=== PATIENT | female | born 1965 | race Caucasian/White ===

== ENCOUNTER 2016-08-26 10:09 | Inpatient (IN) | payer OTHER ==
[~2016-08-26] VITALS: Ht 167.6 cm; Wt 83.1 kg
--- NOTE | 2016-08-26 10:58 | DIAGNOSTIC IMAGING REPORT ---
PROCEDURE: XR CHEST 1 VIEW INDICATION: SHORTNESS OF BREATH TECHNIQUE: Portable AP view 10:45 a.m. COMPARISON: None. FINDINGS: Lungs are clear. Heart and mediastinum are normal. Thorax is normal. IMPRESSION: 1. Negative chest.
--- NOTE | 2016-08-26 13:27 | DIAGNOSTIC IMAGING REPORT ---
PROCEDURE: CTA THORAX WITH CONTRAST INDICATION: SHORTNESS OF BREATH, initial encounter TECHNIQUE: 80 ml of Isovue 370 was injected intravenously and axial images were obtained of the entire thorax with 3D sagittal and coronal MIP reconstructions. COMPARISON: Chest x-ray 08/26/2016 FINDINGS: Mild respiratory artifacts. No evidence of pulmonary emboli. Minor patchy infiltrates of the right middle and lower lobes. Mild right hilar and subcarinal adenopathy. No effusion. No evidence of aortic aneurysm or dissection. Normal coronaries. Normal heart size. Cholecystectomy. Hepatic steatosis. Mild degenerative changes of the spine . IMPRESSION: 1. No evidence of pulmonary emboli, aortic dissection or aneurysm 2. Minor right middle and lower lobe infiltrates with mild hilar adenopathy suggestive of pneumonitis 3. Hepatic steatosis 4. Cholecystectomy 5. Results discussed with Dr. Braden
--- NOTE | 2016-08-26 13:30 | ED CLINICAL REPORT ---
Clinical Report - Physicians/Mid Levels [facility] [address] [place] [address] 08/26/2016 10:11 Patient: PADMINI STEPHEN Time Seen: 10:25. Arrived- By ambulance. Historian- patient, EMS personnel and patient's physician. HISTORY OF PRESENT ILLNESS Chief Complaint: DYSPNEA. This started about 1 week ago and is still present and worsening. It was gradual in onset and has been constant. The dyspnea is severe. The patient has had a mild cough productive of scant amounts of clear, yellow sputum. No fever, sweating episodes, chills, dyspnea on exertion or chest pain. No calf pain or foot swelling. The patient has had wheezing (since yesterday). She has had chest tightness ("sitting on my chest and grabbing me by the throat"). REVIEW OF SYSTEMS No chills, fever, calf pain, pedal edema or palpitations. No abdominal pain, constipation, diarrhea, nausea or vomiting. No urinary problems. All systems otherwise negative, except as recorded above. SOCIAL HISTORY Former smoker, end date 02/2016. No alcohol use or drug use. FAMILY HISTORY Denies family medical history. ADDITIONAL NOTES The nursing notes have been reviewed. PHYSICAL EXAM Vital Signs: Have been reviewed. Appearance: Alert. Eyes: Pupils equal, round and reactive to light. Eyes normal inspection. ENT: Nose normal. Pharynx normal. Neck: Normal inspection. No jugular venous distention. Neck supple. CVS: Normal heart rate and rhythm. Heart sounds normal. Respiratory: Decreased air movement. Wheezing present. Moderate rhonchi present in the right lung. Abdomen: Soft and nontender. No organomegaly. Skin: Skin warm and dry. Normal skin color. Normal skin turgor. Extremities: Extremities exhibit normal ROM. No calf tenderness. No lower extremity edema. Neuro: No motor deficit. No sensory deficit. LABS, X-RAYS, AND EKG EKG: Rate: 94. Right axis deviation. Prior EKG unavailable. The study has been independently viewed by me. Chest X-ray: No acute disease. The X-rays were interpreted by the radiologist and contemporaneously by me. Chest CT: (IMPRESSION: 1. No evidence of pulmonary emboli, aortic dissection or aneurysm 2. Minor right middle and lower lobe infiltrates with mild hilar adenopathy suggestive of pneumonitis 3. Hepatic steatosis 4. Cholecystectomy). The study was interpreted contemporaneously by me and discussed with the radiologist. Laboratory Tests: Urine: (MARGIE: 08/26/2016 12:00) ( [facility] [place] 12[facility]27[facility] Final results Test Result Flag Units (Reference) URINE NEGATIVE CBC w Diff: (MARGIE: 08/26/2016 10:35) ( [facility] [place] 08[place]26[facility] 11:03) Final results Test Result Flag Units (Reference) WHITE BLOOD COUNT 8.7 K/uL (4.5-11.5) RED BLOOD COUNT 4.79 M/uL (4.00-5.20) HEMOGLOBIN 14.6 gm/dL (12.0-16.0) HEMATOCRIT 44.4 % (36.0-46.0) MEAN CELL VOLUME 93 fL (80-100) MEAN CORPUSCULAR HGB 30 pg (26-34) MEAN CORPUSCULAR HGB CONC 33 g/dL (31-37) RED CELL DISTRIBUTION WIDTH 13.7 % (11.6-14.8) PLATELET COUNT 232 K/uL (150-400) NEUTROPHIL % 63.5 % (50-75) LYMPH % 25.2 % (25-40) MONO % 8.6 % (3-14) EOSINOPHIL % 2.0 % (0-4) BASOPHIL % 0.7 % (0-2) PT with INR: (MARGIE: 08/26/2016 11:35) ( [facility]sg[facility]cvd 08/26/2016 11:57) Final results Test Result Flag Units (Reference) INR 1.0 (0.8-1.2) Low Intensity Therapy: INR 1.5-2.0 PT range 18.5-23.1Mod.Intensity Therapy: INR 2.0-3.0 PT range 23.1-31.5High Intensity Therapy: INR 2.5-3.5 PT range 27.4-35.5High Intensity Therapy 2: INR 3.0-4.0 PT range 31.5-39.3 APTT 31 SECONDS (24-34) [id number]: (MARGIE: 08/26/2016 10:35) ( MsgRcvd 08/26/2016 11:07) Final results Test Result Flag Units (Reference) D-DIMER QUANTITATIVE 0.85 H ug/mLFEU (0.27-0.52) The primary value of this quantitative assay relates toits negative predictive value (i.e. exclusion) of pulmonaryembolism/deep vein thrombosis/DIC.Elevated levels of d-dimer may also occur with:, age, cancer, inflammation, liver disease,post-op, infection, hematoma, coronary disease, peripheralarteriopathy, bleeding disorders and thrombolytic treatment.Results should be correlated with other clinical andradiological data.Testing Methodology: Latex Immunoassay [id number]: (MARGIE: 08/26/2016 10:35) ( MsgRcvd 08/26/2016 14:31) Final results Test Result Flag Units (Reference) PROCALCITONIN <0.5 ng/mL (0-0.5) PCT Concentration: Interpretation : Risk/option for action PCT <=0.5 ng/mL : Systemic : Low risk forinfection(sepsis): progression to severeis not likely. : systemic infection.Local bacterial : CAUTION-PCT levelsinfection is : below 0.5 ng/mL do notpossible. : exclude an infection,because localizedinfections (withoutsystemic signs) may beassociated with suchlow levels. If PCT ismeasured very earlyafter a bacterialchallenge (usually <6hours), these valuesmay still be low. Inthis case PCT shouldbe re-assessed 6-24hours later. PCT >0.5 and : Systemic infection: Moderate risk for<= 2 ng/mL : (sepsis) is : progression to severepossible, but : systemic infection.other conditions : The patient should beare known to : closely monitoredelevate PCT. : both clinically andby re-assessing PCTwithin 6-24 hours. PCT > 2 ng/mL : Systemic infection: High risk for(sepsis) is likely: progression to severeunless other : systemic infection.causes are known. : PCT >= 10 ng/mL : Important systemic: High likelihood ofinflammatory : severe sepsis orresponse, almost : septic shock.exclusively due to:severe bacterial :sepsis or septic :shock. : BNP: (MARGIE: 08/26/2016 10:35) ( MsgRcvd 08/26/2016 11:28) Final results Test Result Flag Units (Reference) B-TYPE NATRIURETIC PEPTIDE 17.6 pg/ml (5-100) CMP: (MARGIE: 08/26/2016 10:35) ( MsgRcvd 08/26/2016 11:17) Final results Test Result Flag Units (Reference) GLUCOSE 164 H mg/dL (70-110) BUN 11 mg/dL (7-18) CREATININE 0.9 mg/dL (0.6-1.3) Estimated GFR >60 mL/min Estimated GFR- >60 mL/min Note: Persistent reduction over 3 months in eGFR<60 mL/min/1.73 m2 defines CKD. Patients with eGFR values>=60 mL/min/1.73 m2 may also have CKD if evidence ofpersistent proteinuria. Additional information may be foundat [email or web address].org. SODIUM 138 mmol/L (136-145) POTASSIUM 3.4 L mmol/L (3.5-5.1) CHLORIDE 105 mmol/L (98-107) CARBON DIOXIDE 27 mmol/L (21-32) CALCIUM 8.2 L mg/dL (8.5-10.1) TOTAL PROTEIN 7.2 g/dL (6.4-8.2) ALBUMIN 3.8 g/dL (3.3-5.0) BILIRUBIN, TOTAL 0.8 mg/dL (0.0-1.0) ALKALINE PHOSPHATASE 65 U/L (46-116) AST (SGOT) 33 U/L (15-37) ALT (SGPT) 53 U/L (12-78) LIPASE 122 U/L (73-393) AMYLASE 24 L U/L (25-115) CPK 135 U/L (24-260) TROPONIN I <0.05 L ng/mL (0.00-1.5) TROPONIN REFERENCE RANGE:<0.1 NEGATIVE0.1-1.5 INDETERMINANT>1.5 POSITIVE ABG: (MARGIE: 08/26/2016 13:44) ( MsgRcvd 08/26/2016 14:51) Final results Test Result Flag Units (Reference) FIO2 21 % (20-101) ABG MODE OF DELIVERY RA MODIFIED SIL TEST POSITIVE? YES ABG PATIENT RESP RATE 18 /MIN ARTERIAL BLOOD GAS SITE LR ARTERIAL BLOOD GAS pH 7.40 (7.35-7.45) ABG PCO2 37.9 mmHg (35-45) ABG PO2 56.6 L mmHg (80.0-100.0) ABG BASE EXCESS -1.1 H mmol/L (-6.0--6.0) ABG HCO3 23.5 mmol/L (20.0-26.0) ABG TCO2 24.6 mmol/L (24.0-30.0) ABG EuOlH0v 49.4 H mmHg (7.0-14.0) *NOTE: Normal rangeis based on aFIO2 of 21% ABG SAT O2 90.7 L % (95.1-100.0) ABG TOTAL HEMOGLOBIN 14.5 g/dL (12.0-16.0) ABG O2 HEMOGLOBIN 88.4 L % (95.0-100.0) ABG CARBOXYHEMOGLOBIN 2.4 H % (0.5-1.5) ABG METHEMOGLOBIN 0.1 L % (0.4-1.5) ABG RHEMOGLOBIN 9.1 % . PROGRESS AND PROCEDURES Course of Care: The patient's symptoms are unchanged. Physical exam findings are unchanged. Discussed case with hospitalist, (Tom). Reviewed test results and need for additional work-up. Agreed upon treatment plan and need for patient follow-up. Health care provider will see patient in hospital. Patient/family counseled. Disposition orders written (in [facility]). Disposition: Admitted. Observation. CLINICAL IMPRESSION COPD. hypoxia pneumonitis. (Electronically signed by Vijay Braden MD 08/27/2016 0:27)
--- NOTE | 2016-08-26 13:30 | ED NURSING NOTES ---
Clinical Report - Nurses [facility] [place] [address] 08/26/2016 10:11 [id number] Triage time 10:18 Aug 26 2016. Acuity: LEVEL 3. Chief Complaint: SHORTNESS OF BREATH and WHEEZING. SEPSIS SCREEN: Sepsis Screen. Negative (no infection suspected/documented). ESTELA COMA SCORE: [place] Coma Scale: 15- eyes open spontaneously (4); best verbal response- oriented x 4 (5); best motor response- obeys commands (6). --10:22 Joni Schulz R.N. 10:18 08/26/16. BP: 107/72. HR: 98. RR: 18. O2 saturation: 94%. Temp: 98.9 F. Pain level now 10. --10:22 Joni Schulz R.N. Weight: 68 kg stated. Height/Length: 66 inches Per Patient. BMI: 24.2. --10:21 Joni Schulz R.N. Medications None. --10:19 Joni Schulz R.N. Allergies morphine. --10:19 Joni Schulz R.N. Levsin. --10:19 Joni Schulz R.N. Codeine. --10:19 Joni Schulz R.N. History Arrived by EMS, and from the physician's office. Historian: patient. Onset. (Started two days ago). She has had a cough and wheezing. No fever, chills, chest pain or back pain. Treatment [employer] OFFICER: None. PAST MEDICAL HX: No history of asthma, chronic obstructive pulmonary disease, congestive heart failure, diabetes mellitus or hypertension. Immunizations: up-to-date. SOCIAL HX: Smoker- current status unknown. No alcohol use or drug use. No infectious disease exposure. SELF HARM ASSESSMENT: A self harm assessment was performed. The patient answered "no" to the question "Have you recently felt down, depressed, or hopeless?" and "Do you have thoughts of harming or killing yourself?". (no). FALL RISK ASSESSMENT: Fall risk assessment completed. No fall risk identified. NUTRITIONAL RISK ASSESSMENT: The nutritional risk assessment revealed no deficiencies. FUNCTIONAL ASSESSMENT: Functional assessment: no impairments noted. LEARNING NEEDS ASSESSMENT: The learning needs assessment revealed no barriers. ABUSE ASSESSMENT: Abuse assessment: (yes) The patient was asked "Do you feel safe in your home?". SKIN INTEGRITY ASSESSMENT: Skin integrity risk assessment completed. No skin integrity risk identified. --10:22 Joni Schulz R.N. Interventions ID and allergy band on patient. --10:22 Joni Schulz R.N. PHYSICAL ASSESSMENT To room via stretcher. GENERAL / NEURO / PSYCH: Alert. Oriented X 4. Appears in no acute distress. HEENT: Mucous membranes are pink. RESPIRATORY: Mild respiratory distress. The patient can speak in full sentences. Cough. Chest wall tenderness. Expiratory wheezes present. Rhonchi present. CVS: Normal sinus rhythm noted. Capillary refill less than 2 seconds. GI / : Abdomen soft and nontender. Bowel sounds within normal limits. ( Last BM yesterday loose stool). SKIN: Skin is warm and dry. Normal skin turgor. --10:25 Joni Schulz R.N. NURSING PROGRESS NOTES The initial plan of care for this patient includes an assessment with efforts to address the patient's anxiety; patient positioning and appropriate ambient lighting; impairment of the respiratory system. Oxygen administered by nonrebreather mask at 8 liters. gambling monitor, pulse oximeter and NIBP monitor placed on patient. Reassurance given. Call light placed in reach. Side rails up x 1. Bed placed in lowest position. Brakes of bed on. ( Took patient off O2 to monitor on RA currently at 93 percent on RA.). --10:27 Joni Schulz R.N. 10:31 08/26/2016 Site #1 started prior to arrival by EMS via IV in the right antecubital space with an 20g angiocath. Blood drawn: rainbow set. Labeled in the presence of the patient and sent to the lab. Saline lock flushed with 10 mL saline (Lab at bedside for draw.). --10:31 Joni Schulz R.N. EKG time: (1043). EKG was performed by a tech and shown to the ED physician. --10:44 Yessenia Menendez 11:56 08/26/2016 SOLU-MEDROL (MethylPREDNISolone Sodium Succ) IVP 125 mg given over 2 minute(s) via site #1. Allergies verified and confirmed 5 rights. IV patency established. IV site checked: no pain, redness, or swelling. IV flushed thoroughly pre- and post-medication administration. --11:56 Joni Schulz R.N. 11:58 08/26/2016 Started bag #1 1000 mL IV Fluids IV NS (Saline); at 1000 mL/hr over 1 hour(s) via site #1 via dial-a-flow. Allergies verified and confirmed 5 rights. IV patency established. IV site checked: no pain, redness, or swelling. IV flushed thoroughly pre- and post-medication administration. --11:58 Joni Schulz R.N. 12:28 08/26/2016 Duoneb (Ipratropium-Albuterol) Neb TX Nebulizer 1 unit dose given. --12:28 Ayleen Berumen 12:25. Patient transported to [place] by wheelchair with tech. --12:40 Shante Guerra R.N. 11:45 08/26/16. BP: 103/69. HR: 91. RR: 18. O2 saturation: 98% on nasal cannula at 2 liters/minute. --13:23 Joni Schulz R.N. 12:25 08/26/16. BP: 105/54. HR: 90. RR: 22. O2 saturation: 98% on nasal cannula at 2 liters/minute. --13:25 Joni Schulz R.N. 13:27 08/26/16. BP: 117/73. HR: 78. RR: 20. O2 saturation: 92%. --13:27 Joni Schulz R.N. ( pt resting soundly). --13:27 Joni Schulz R.N. 13:45 08/26/2016 Started 2 gm of Ceftriaxone IVPB in bag #1 50 mL; at 100 mL/hr over 30 minute(s) via site #1 via IV pump. Allergies verified and confirmed 5 rights. IV patency established. IV site checked: no pain, redness, or swelling. IV flushed thoroughly pre- and post-medication administration. --13:45 Tico Zhang R.N. ( 02 taken off for ABG.). --13:54 Joni Schulz R.N. 15:22 08/26/2016 Started 500 mg of Zithromax (Azithromycin) IVPB in bag #1 255 mL; at 255 mL/hr over 1 hour(s) via site #1 via IV pump. Allergies verified and confirmed 5 rights. IV patency established. IV site checked: no pain, redness, or swelling. IV flushed thoroughly pre- and post-medication administration. --15:22 Tico Zhang R.N. 15:25 08/26/2016 IV Fluids IV NS Bag Change: bag #1 completed. Total amount infused: 1000. STARTED bag #2 (1000 mL) at 125 mL/hr via dial-a-flow. Confirmed 5 rights. IV patency established. IV site checked: no pain, redness, or swelling. IV flushed thoroughly. --15:27 Tico Zhang R.N. 16:00 08/26/16. BP: 106/68. HR: 73. RR: 22. O2 saturation: 95%. --16:03 Joni Schulz R.N. 16:00 08/26/16. BP: 106/68. HR: 73. RR: 22. O2 saturation: 95%. 15:00 08/26/16. BP: 113/66. HR: 70. RR: 22. O2 saturation: 93% on nasal cannula at 2 liters/minute. 14:30 08/26/16. BP: 161/72. HR: 76. RR: 20. O2 saturation: 86% on room air. --16:05 Joni Schulz R.N. 16:30 08/26/2016 Zithromax IVPB Discontinued: bag #1 completed. Total amount infused: 255 mL. IV patency established. IV site checked: no pain, redness, or swelling. IV flushed thoroughly. --16:30 Tico Zhang R.N. DISPOSITION / DISCHARGE Departure time: 16:56 Eulalio 06 2017. Admitted to Acute Care. ( Report given to Ledy HARTLEY). --16:57 Joni Schulz R.N. 16:00 08/26/16. BP: 106/68. HR: 73. RR: 22. O2 saturation: 95%. --17:12 Joni Schulz R.N. 17:12 08/26/16. Temp: 98.4 F. Pain level now 0/10. --17:12 Joni Schulz R.N. Locked/Released at 08/26/2016 19:24 by Joni Schulz R.N.
--- NOTE | 2016-08-26 13:30 | ED CLINICAL REPORT ---
Clinical Report - Physicians/Mid Levels [facility] [address] [place] [address] 08/26/2016 10:11 Patient: PADMINI STEPHEN Time Seen: 10:25. Arrived- By ambulance. Historian- patient, EMS personnel and patient's physician. HISTORY OF PRESENT ILLNESS Chief Complaint: DYSPNEA. This started about 1 week ago and is still present and worsening. It was gradual in onset and has been constant. The dyspnea is severe. The patient has had a mild cough productive of scant amounts of clear, yellow sputum. No fever, sweating episodes, chills, dyspnea on exertion or chest pain. No calf pain or foot swelling. The patient has had wheezing (since yesterday). She has had chest tightness ("sitting on my chest and grabbing me by the throat"). REVIEW OF SYSTEMS No chills, fever, calf pain, pedal edema or palpitations. No abdominal pain, constipation, diarrhea, nausea or vomiting. No urinary problems. All systems otherwise negative, except as recorded above. SOCIAL HISTORY Former smoker, end date 02/2016. No alcohol use or drug use. FAMILY HISTORY Denies family medical history. ADDITIONAL NOTES The nursing notes have been reviewed. PHYSICAL EXAM Vital Signs: Have been reviewed. Appearance: Alert. Eyes: Pupils equal, round and reactive to light. Eyes normal inspection. ENT: Nose normal. Pharynx normal. Neck: Normal inspection. No jugular venous distention. Neck supple. CVS: Normal heart rate and rhythm. Heart sounds normal. Respiratory: Decreased air movement. Wheezing present. Moderate rhonchi present in the right lung. Abdomen: Soft and nontender. No organomegaly. Skin: Skin warm and dry. Normal skin color. Normal skin turgor. Extremities: Extremities exhibit normal ROM. No calf tenderness. No lower extremity edema. Neuro: No motor deficit. No sensory deficit. LABS, X-RAYS, AND EKG EKG: Rate: 94. Right axis deviation. Prior EKG unavailable. The study has been independently viewed by me. Chest X-ray: No acute disease. The X-rays were interpreted by the radiologist and contemporaneously by me. Chest CT: (IMPRESSION: 1. No evidence of pulmonary emboli, aortic dissection or aneurysm 2. Minor right middle and lower lobe infiltrates with mild hilar adenopathy suggestive of pneumonitis 3. Hepatic steatosis 4. Cholecystectomy). The study was interpreted contemporaneously by me and discussed with the radiologist. Laboratory Tests: Urine: (MARGIE: 08/26/2016 12:00) [facility]27[facility] Final results Test Result Flag Units (Reference) URINE NEGATIVE CBC w Diff: (MARGIE: 08/26/2016 10:35) ( [facility] 08/26/2016 11:03) Final results Test Result Flag Units (Reference) WHITE BLOOD COUNT 8.7 K/uL (4.5-11.5) RED BLOOD COUNT 4.79 M/uL (4.00-5.20) HEMOGLOBIN 14.6 gm/dL (12.0-16.0) HEMATOCRIT 44.4 % (36.0-46.0) MEAN CELL VOLUME 93 fL (80-100) MEAN CORPUSCULAR HGB 30 pg (26-34) MEAN CORPUSCULAR HGB CONC 33 g/dL (31-37) RED CELL DISTRIBUTION WIDTH 13.7 % (11.6-14.8) PLATELET COUNT 232 K/uL (150-400) NEUTROPHIL % 63.5 % (50-75) LYMPH % 25.2 % (25-40) MONO % 8.6 % (3-14) EOSINOPHIL % 2.0 % (0-4) BASOPHIL % 0.7 % (0-2) PT with INR: (MARGIE: 08/26/2016 11:35) ( MsgRcvd 08/26/2016 11:57) Final results Test Result Flag Units (Reference) INR 1.0 (0.8-1.2) Low Intensity Therapy: INR 1.5-2.0 PT range 18.5-23.1Mod.Intensity Therapy: INR 2.0-3.0 PT range 23.1-31.5High Intensity Therapy: INR 2.5-3.5 PT range 27.4-35.5High Intensity Therapy 2: INR 3.0-4.0 PT range 31.5-39.3 APTT 31 SECONDS (24-34) [id number]: (MARGIE: 08/26/2016 10:35) ( MsgRcvd 08/26/2016 11:07) Final results Test Result Flag Units (Reference) D-DIMER QUANTITATIVE 0.85 H ug/mLFEU (0.27-0.52) The primary value of this quantitative assay relates toits negative predictive value (i.e. exclusion) of pulmonaryembolism/deep vein thrombosis/DIC.Elevated levels of d-dimer may also occur with:, age, cancer, inflammation, liver disease,post-op, infection, hematoma, coronary disease, peripheralarteriopathy, bleeding disorders and thrombolytic treatment.Results should be correlated with other clinical andradiological data.Testing Methodology: Latex Immunoassay [id number]: (MARGIE: 08/26/2016 10:35) ( MsgRcvd 08/26/2016 14:31) Final results Test Result Flag Units (Reference) PROCALCITONIN <0.5 ng/mL (0-0.5) PCT Concentration: Interpretation : Risk/option for action PCT <=0.5 ng/mL : Systemic : Low risk forinfection(sepsis): progression to severeis not likely. : systemic infection.Local bacterial : CAUTION-PCT levelsinfection is : below 0.5 ng/mL do notpossible. : exclude an infection,because localizedinfections (withoutsystemic signs) may beassociated with suchlow levels. If PCT ismeasured very earlyafter a bacterialchallenge (usually <6hours), these valuesmay still be low. Inthis case PCT shouldbe re-assessed 6-24hours later. PCT >0.5 and : Systemic infection: Moderate risk for<= 2 ng/mL : (sepsis) is : progression to severepossible, but : systemic infection.other conditions : The patient should beare known to : closely monitoredelevate PCT. : both clinically andby re-assessing PCTwithin 6-24 hours. PCT > 2 ng/mL : Systemic infection: High risk for(sepsis) is likely: progression to severeunless other : systemic infection.causes are known. : PCT >= 10 ng/mL : Important systemic: High likelihood ofinflammatory : severe sepsis orresponse, almost : septic shock.exclusively due to:severe bacterial :sepsis or septic :shock. : BNP: (MARGIE: 08/26/2016 10:35) ( MsgRcvd 08/26/2016 11:28) Final results Test Result Flag Units (Reference) B-TYPE NATRIURETIC PEPTIDE 17.6 pg/ml (5-100) CMP: (MARGIE: 08/26/2016 10:35) ( MsgRcvd 08/26/2016 11:17) Final results Test Result Flag Units (Reference) GLUCOSE 164 H mg/dL (70-110) BUN 11 mg/dL (7-18) CREATININE 0.9 mg/dL (0.6-1.3) Estimated GFR >60 mL/min Estimated GFR- >60 mL/min Note: Persistent reduction over 3 months in eGFR<60 mL/min/1.73 m2 defines CKD. Patients with eGFR values>=60 mL/min/1.73 m2 may also have CKD if evidence ofpersistent proteinuria. Additional information may be foundat www.kidney.org. SODIUM 138 mmol/L (136-145) POTASSIUM 3.4 L mmol/L (3.5-5.1) CHLORIDE 105 mmol/L (98-107) CARBON DIOXIDE 27 mmol/L (21-32) CALCIUM 8.2 L mg/dL (8.5-10.1) TOTAL PROTEIN 7.2 g/dL (6.4-8.2) ALBUMIN 3.8 g/dL (3.3-5.0) BILIRUBIN, TOTAL 0.8 mg/dL (0.0-1.0) ALKALINE PHOSPHATASE 65 U/L (46-116) AST (SGOT) 33 U/L (15-37) ALT (SGPT) 53 U/L (12-78) LIPASE 122 U/L (73-393) AMYLASE 24 L U/L (25-115) CPK 135 U/L (24-260) TROPONIN I <0.05 L ng/mL (0.00-1.5) TROPONIN REFERENCE RANGE:<0.1 NEGATIVE0.1-1.5 INDETERMINANT>1.5 POSITIVE ABG: (MARGIE: 08/26/2016 13:44) ( MsgRcvd 08/26/2016 14:51) Final results Test Result Flag Units (Reference) FIO2 21 % (20-101) ABG MODE OF DELIVERY RA MODIFIED SIL TEST POSITIVE? YES ABG PATIENT RESP RATE 18 /MIN ARTERIAL BLOOD GAS SITE LR ARTERIAL BLOOD GAS pH 7.40 (7.35-7.45) ABG PCO2 37.9 mmHg (35-45) ABG PO2 56.6 L mmHg (80.0-100.0) ABG BASE EXCESS -1.1 H mmol/L (-6.0--6.0) ABG HCO3 23.5 mmol/L (20.0-26.0) ABG TCO2 24.6 mmol/L (24.0-30.0) ABG DmOzC3g 49.4 H mmHg (7.0-14.0) *NOTE: Normal rangeis based on aFIO2 of 21% ABG SAT O2 90.7 L % (95.1-100.0) ABG TOTAL HEMOGLOBIN 14.5 g/dL (12.0-16.0) ABG O2 HEMOGLOBIN 88.4 L % (95.0-100.0) ABG CARBOXYHEMOGLOBIN 2.4 H % (0.5-1.5) ABG METHEMOGLOBIN 0.1 L % (0.4-1.5) ABG RHEMOGLOBIN 9.1 % . PROGRESS AND PROCEDURES Course of Care: The patient's symptoms are unchanged. Physical exam findings are unchanged. Discussed case with hospitalist, (Tom). Reviewed test results and need for additional work-up. Agreed upon treatment plan and need for patient follow-up. Health care provider will see patient in hospital. Patient/family counseled. Disposition orders written (in [facility]). Disposition: Admitted. Observation. CLINICAL IMPRESSION COPD. hypoxia pneumonitis. (Electronically signed by Vijay Braden MD 08/27/2016 0:27)
--- NOTE | 2016-08-26 13:30 | ED ORDER SUMMARY ---
..... Patient: PADMINI STEPHEN [facility]Sheet [facility]: [id number] [address] [place] [address] 51y, F Registration Date/Time: 08/26/2016 ORDER SHEET Weight: 68.0 kg (stated) Allergies: morphine, Levsin, Codeine GENERAL ORDERS: Chest 1V Urgent (10:08/26/2016 Gonzalo BURGOS) (Ack 10:28 LTapper) (12:02 LWhalen R.N.) CBC w Diff Urgent (10:08/26/2016 Gonzalo BURGOS) (Ack 10:28 LTapper) (10:31 LWhalen R.N.) CMP Urgent (10:08/26/2016 Gonzalo BURGOS) (Ack 10:28 LTapper) (10:31 LWhalen R.N.) BNP Urgent (10:08/26/2016 Gonzalo BURGOS) (Ack 10:28 LTapper) (10:31 LWhalen R.N.) Amylase Urgent (10:08/26/2016 Gonzalo BURGOS) (Ack 10:28 LTapper) (10:31 LWhalen R.N.) Lipase Urgent (10:08/26/2016 Gonzalo BURGOS) (Ack 10:28 LTapper) (10:31 LWhalen R.N.) D-Dimer Urgent (10:08/26/2016 Gonzalo BURGOS) (Ack 10:28 LTapper) (10:31 LWhalen R.N.) CPK Urgent (10:08/26/2016 Gonzalo BURGOS) (Ack 10:28 LTapper) (10:31 LWhalen R.N.) Troponin-I Urgent (10:08/26/2016 Gonzalo BURGOS) (Ack 10:28 LTapper) (10:31 LWhalen R.N.) Professor Of Food Biochemistry (Continuous) (10:08/26/2016 Gonzalo BURGOS) (10:31 LWhalen R.N.) EKG - ER Stat (10:08/26/2016 Gonzalo BURGOS) (Ack 10:28 LTapper) (10:43 RKaruga) Pulse oximeter (10:26 08/26/2016 Gonzalo BURGOS) (10:31 LWhalen R.N.) Oxygen (2 L/min) (NC) (10:26 08/26/2016 Gonzalo BURGOS) (10:31 LWhalen R.N.) PT with INR Urgent (11:36 08/26/2016 Gonzalo BURGOS) (Ack 11:39 LTapper) (12:11 LWhalen R.N.) PTT Urgent (11:36 08/26/2016 Gonzalo BUROGS) (Ack 11:39 LTapper) (12:11 LWhalen R.N.) CTA Thorax w Cont (No) (N/A) Urgent (11:36 08/26/2016 Gonzalo BURGOS) (Ack 11:39 LTapper) (12:11 LWhalen R.N.) POC - Urine hCG (11:37 08/26/2016 Gonzalo BURGOS) (12:11 LWhaljose a R.N.) RT Evaluation Stat (11:40 08/26/2016 Gonzalo BURGOS) (12:11 LWhalen R.N.) Urine Urgent (12:17 08/26/2016 LSullivan R.N. verbal order read back to Gonzalo BURGOS) (Ack 13:11 LTapper) Blood Culture (No) (N/A) Urgent (13:27 08/26/2016 Gonzalo BURGOS) (Ack 13:33 LTapper) PCT (Procalcitonin) Urgent (13:41 08/26/2016 Gonzalo BURGOS) (Ack 13:50 LTapper) - (Film array respiratory panel) Urgent (13:44 08/26/2016 Gonzalo BURGOS) (Ack 13:50 LTapper) ABG (G) Urgent (13:44 08/26/2016 Gonzalo BURGOS) (Ack 13:50 LTapper) (15:26 Rashid R.N.) MEDICATION ORDERS: DuoNeb Neb Tx 1 unit dose (NOW) (11:39 08/26/2016 Gonzalo BURGOS) (12:28 RMcCarson) IV FLUIDS: IV Saline Lock (10:26 08/26/2016 Gonzalo BURGOS) (10:31 Nazario R.NJose Luis) IV NS : initial bolus 500 mL (1000 mL/hr), then 125 mL/hr for 4h (NOW); Urgent (11:35 08/26/2016 Gonzalo BURGOS) (11:58 Nazario Sanchez.N.) Solu-MEDROL IV 125 mg (NOW) (11:39 08/26/2016 Gonzalo BURGOS) (11:56 Nazario Sanchez.N.) Ceftriaxone IV 2 gm/50mL (NOW) (13:28 08/26/2016 Gonzalo BURGOS) (13:45 Rashid Ramirez) Zithromax IV 500 mg/250 mL (NOW) (13:28 08/26/2016 Gonzalo BURGOS) (15:22 Rashid Sanchez.Supa) ORDER SHEET NOTES: [Electronically signed by Joni Schulz R.N. (19:24 08/26/2016)] [Electronically signed by Vijay Braden MD (00:27 08/27/2016)] [Electronically locked/signed by Joni Schulz R.N. (19:24 08/26/2016)]
--- NOTE | 2016-08-26 13:30 | ED ORDER SUMMARY ---
..... Patient: PADMINI STEPHEN [facility] VisitID: [id number] [address] [place] [address] 51y, F Registration Date/Time: 08/26/2016 ORDER SHEET Weight: 68.0 kg (stated) Allergies: morphine, Levsin, Codeine GENERAL ORDERS: Chest 1V Urgent (10:08/26/2016 Gonzalo BURGOS) (Ack 10:28 LTapper) (12:02 LWhalen R.N.) CBC w Diff Urgent (10:08/26/2016 Gonzalo BURGOS) (Ack 10:28 LTapper) (10:31 LWhalen R.N.) CMP Urgent (10:08/26/2016 Gonzalo BURGOS) (Ack 10:28 LTapper) (10:31 LWhalen R.N.) BNP Urgent (10:08/26/2016 Gonzalo BRUGOS) (Ack 10:28 LTapper) (10:31 LWhalen R.N.) Amylase Urgent (10:08/26/2016 Gonzalo BURGOS) (Ack 10:28 LTapper) (10:31 LWhalen R.N.) Lipase Urgent (10:08/26/2016 Gonzalo BURGOS) (Ack 10:28 LTapper) (10:31 LWhalen R.N.) D-Dimer Urgent (10:08/26/2016 Gonzalo BURGOS) (Ack 10:28 LTapper) (10:31 LWhalen R.N.) CPK Urgent (10:08/26/2016 Gonzalo BURGOS) (Ack 10:28 LTapper) (10:31 LWhalen R.N.) Troponin-I Urgent (10:08/26/2016 Gonzalo BURGOS) (Ack 10:28 LTapper) (10:31 LWhalen R.N.) Floating Operator (Continuous) (10:08/26/2016 Gonzalo BURGOS) (10:31 LWhalen R.N.) EKG - ER Stat (10:08/26/2016 Gonzalo BURGOS) (Ack 10:28 LTapper) (10:43 RKaruga) Pulse oximeter (10:26 08/26/2016 Gonzalo BURGOS) (10:31 LWhalen R.N.) Oxygen (2 L/min) (NC) (10:26 08/26/2016 Gonzalo BURGOS) (10:31 LWhalen R.N.) PT with INR Urgent (11:36 08/26/2016 Gonzalo BURGOS) (Ack 11:39 LTapper) (12:11 LWhalen R.N.) PTT Urgent (11:36 08/26/2016 Gonzalo BURGOS) (Ack 11:39 LTapper) (12:11 LWhalen R.N.) CTA Thorax w Cont (No) (N/A) Urgent (11:36 08/26/2016 Gonzalo BURGOS) (Ack 11:39 LTapper) (12:11 LWhalen R.N.) POC - Urine hCG (11:37 08/26/2016 Gonzalo BURGOS) (12:11 LWhaljose a R.N.) RT Evaluation Stat (11:40 08/26/2016 Gonzalo BURGOS) (12:11 LWhalen R.N.) Urine Urgent (12:17 08/26/2016 LSullivan R.N. verbal order read back to Gonzalo BURGOS) (Ack 13:11 LTapper) Blood Culture (No) (N/A) Urgent (13:27 08/26/2016 Gonzalo BURGOS) (Ack 13:33 LTapper) PCT (Procalcitonin) Urgent (13:41 08/26/2016 Gonzalo BURGOS) (Ack 13:50 LTapper) - (Film array respiratory panel) Urgent (13:44 08/26/2016 Gonzalo BURGOS) (Ack 13:50 LTapper) ABG (G) Urgent (13:44 08/26/2016 Gonzalo BURGOS) (Ack 13:50 LTapper) (15:26 Rashid R.N.) MEDICATION ORDERS: DuoNeb Neb Tx 1 unit dose (NOW) (11:39 08/26/2016 Gonzalo BURGOS) (12:28 RMcCarson) IV FLUIDS: IV Saline Lock (10:26 08/26/2016 Gonzalo BURGOS) (10:31 Nazario R.NJose Luis) IV NS : initial bolus 500 mL (1000 mL/hr), then 125 mL/hr for 4h (NOW); Urgent (11:35 08/26/2016 Gonzalo BURGOS) (11:58 Nazario Sanchez.N.) Solu-MEDROL IV 125 mg (NOW) (11:39 08/26/2016 Gonzalo BURGOS) (11:56 Nazario Sanchez.N.) Ceftriaxone IV 2 gm/50mL (NOW) (13:28 08/26/2016 Gonzalo BURGOS) (13:45 Rashid Ramirez) Zithromax IV 500 mg/250 mL (NOW) (13:28 08/26/2016 Gonzalo BURGOS) (15:22 Rashid Sanchez.Supa) ORDER SHEET NOTES: [Electronically signed by Joni Schulz R.N. (19:24 08/26/2016)] [Electronically signed by Vijay Braden MD (00:27 08/27/2016)] [Electronically locked/signed by Joni Schulz R.N. (19:24 08/26/2016)]
--- NOTE | 2016-08-26 13:30 | ED NURSING NOTES ---
Clinical Report - Nurses [facility] [place] [place] [address] 08/26/2016 10:11 [id number] Triage time 10:18 Aug 26 2016. Acuity: LEVEL 3. Chief Complaint: SHORTNESS OF BREATH and WHEEZING. SEPSIS SCREEN: Sepsis Screen. Negative (no infection suspected/documented). ESTELA COMA SCORE: [place] Coma Scale: 15- eyes open spontaneously (4); best verbal response- oriented x 4 (5); best motor response- obeys commands (6). --10:22 Joni Schulz R.N. 10:18 08/26/16. BP: 107/72. HR: 98. RR: 18. O2 saturation: 94%. Temp: 98.9 F. Pain level now 10. --10:22 Joni Schulz R.N. Weight: 68 kg stated. Height/Length: 66 inches Per Patient. BMI: 24.2. --10:21 Joni Schulz R.N. Medications None. --10:19 Joni Schulz R.N. Allergies morphine. --10:19 Joni Schulz R.N. Levsin. --10:19 Joni Schulz R.N. Codeine. --10:19 Joni Schulz R.N. History Arrived by EMS, and from the physician's office. Historian: patient. Onset. (Started two days ago). She has had a cough and wheezing. No fever, chills, chest pain or back pain. 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 PAST MEDICAL HX: No history of asthma, chronic obstructive pulmonary disease, congestive heart failure, diabetes mellitus or hypertension. Immunizations: up-to-date. SOCIAL HX: Smoker- current status unknown. No alcohol use or drug use. No infectious disease exposure. SELF HARM ASSESSMENT: A self harm assessment was performed. The patient answered "no" to the question "Have you recently felt down, depressed, or hopeless?" and "Do you have thoughts of harming or killing yourself?". (no). FALL RISK ASSESSMENT: Fall risk assessment completed. No fall risk identified. NUTRITIONAL RISK ASSESSMENT: The nutritional risk assessment revealed no deficiencies. FUNCTIONAL ASSESSMENT: Functional assessment: no impairments noted. LEARNING NEEDS ASSESSMENT: The learning needs assessment revealed no barriers. ABUSE ASSESSMENT: Abuse assessment: (yes) The patient was asked "Do you feel safe in your home?". SKIN INTEGRITY ASSESSMENT: Skin integrity risk assessment completed. No skin integrity risk identified. --10:22 Joni Schulz R.N. Interventions ID and allergy band on patient. --10:22 Joni Schulz R.N. PHYSICAL ASSESSMENT To room via stretcher. GENERAL / NEURO / PSYCH: Alert. Oriented X 4. Appears in no acute distress. HEENT: Mucous membranes are pink. RESPIRATORY: Mild respiratory distress. The patient can speak in full sentences. Cough. Chest wall tenderness. Expiratory wheezes present. Rhonchi present. CVS: Normal sinus rhythm noted. Capillary refill less than 2 seconds. GI / : Abdomen soft and nontender. Bowel sounds within normal limits. ( Last BM yesterday loose stool). SKIN: Skin is warm and dry. Normal skin turgor. --10:25 Joni Schulz R.N. NURSING PROGRESS NOTES The initial plan of care for this patient includes an assessment with efforts to address the patient's anxiety; patient positioning and appropriate ambient lighting; impairment of the respiratory system. Oxygen administered by nonrebreather mask at 8 liters. athletic monitor, pulse oximeter and NIBP monitor placed on patient. Reassurance given. Call light placed in reach. Side rails up x 1. Bed placed in lowest position. Brakes of bed on. ( Took patient off O2 to monitor on RA currently at 93 percent on RA.). --10:27 Joni Schulz R.N. 10:31 08/26/2016 Site #1 started prior to arrival by EMS via IV in the right antecubital space with an 20g angiocath. Blood drawn: rainbow set. Labeled in the presence of the patient and sent to the lab. Saline lock flushed with 10 mL saline (Lab at bedside for draw.). --10:31 Joni Schulz R.N. EKG time: (1043). EKG was performed by a tech and shown to the ED physician. --10:44 Yessenia Menendez 11:56 08/26/2016 SOLU-MEDROL (MethylPREDNISolone Sodium Succ) IVP 125 mg given over 2 minute(s) via site #1. Allergies verified and confirmed 5 rights. IV patency established. IV site checked: no pain, redness, or swelling. IV flushed thoroughly pre- and post-medication administration. --11:56 Joni Schulz R.N. 11:58 08/26/2016 Started bag #1 1000 mL IV Fluids IV NS (Saline); at 1000 mL/hr over 1 hour(s) via site #1 via dial-a-flow. Allergies verified and confirmed 5 rights. IV patency established. IV site checked: no pain, redness, or swelling. IV flushed thoroughly pre- and post-medication administration. --11:58 Joni Schulz R.N. 12:28 08/26/2016 Duoneb (Ipratropium-Albuterol) Neb TX Nebulizer 1 unit dose given. --12:28 Ayleen Berumen 12:25. Patient transported to [place] by wheelchair with tech. --12:40 Shante Guerra R.N. 11:45 08/26/16. BP: 103/69. HR: 91. RR: 18. O2 saturation: 98% on nasal cannula at 2 liters/minute. --13:23 Joni Schulz R.N. 12:25 08/26/16. BP: 105/54. HR: 90. RR: 22. O2 saturation: 98% on nasal cannula at 2 liters/minute. --13:25 Joni Schulz R.N. 13:27 08/26/16. BP: 117/73. HR: 78. RR: 20. O2 saturation: 92%. --13:27 Joni Schulz R.N. ( pt resting soundly). --13:27 Joni Schulz R.N. 13:45 08/26/2016 Started 2 gm of Ceftriaxone IVPB in bag #1 50 mL; at 100 mL/hr over 30 minute(s) via site #1 via IV pump. Allergies verified and confirmed 5 rights. IV patency established. IV site checked: no pain, redness, or swelling. IV flushed thoroughly pre- and post-medication administration. --13:45 Tico Zhang R.N. ( 02 taken off for ABG.). --13:54 Joni Schulz R.N. 15:22 08/26/2016 Started 500 mg of Zithromax (Azithromycin) IVPB in bag #1 255 mL; at 255 mL/hr over 1 hour(s) via site #1 via IV pump. Allergies verified and confirmed 5 rights. IV patency established. IV site checked: no pain, redness, or swelling. IV flushed thoroughly pre- and post-medication administration. --15:22 Tico Zhang R.N. 15:25 08/26/2016 IV Fluids IV NS Bag Change: bag #1 completed. Total amount infused: 1000. STARTED bag #2 (1000 mL) at 125 mL/hr via dial-a-flow. Confirmed 5 rights. IV patency established. IV site checked: no pain, redness, or swelling. IV flushed thoroughly. --15:27 Tico Zhang R.N. 16:00 08/26/16. BP: 106/68. HR: 73. RR: 22. O2 saturation: 95%. --16:03 Joni Schulz R.N. 16:00 08/26/16. BP: 106/68. HR: 73. RR: 22. O2 saturation: 95%. 15:00 08/26/16. BP: 113/66. HR: 70. RR: 22. O2 saturation: 93% on nasal cannula at 2 liters/minute. 14:30 08/26/16. BP: 161/72. HR: 76. RR: 20. O2 saturation: 86% on room air. --16:05 Joni Schulz R.N. 16:30 08/26/2016 Zithromax IVPB Discontinued: bag #1 completed. Total amount infused: 255 mL. IV patency established. IV site checked: no pain, redness, or swelling. IV flushed thoroughly. --16:30 Tico Zhang R.N. DISPOSITION / DISCHARGE Departure time: 16:56 Eulalio 06 2017. Admitted to Acute Care. ( Report given to Ledy HARTLEY). --16:57 Joni Schulz R.N. 16:00 08/26/16. BP: 106/68. HR: 73. RR: 22. O2 saturation: 95%. --17:12 Joni Schulz R.N. 17:12 08/26/16. Temp: 98.4 F. Pain level now 0/10. --17:12 Joni Schulz R.N. Locked/Released at 08/26/2016 19:24 by Joni Schulz R.N.
[2016-08-26 17:30] VITALS: BP 122/70
--- NOTE | 2016-08-26 18:07 | NUR ---
PT ADMITTED TO ROOM 208 VIA THE ED. SHE IS INDEP, APPEARS TIRED AND DENIES PAIN AT THIS TIME. SHE IS MAINTAINING SATS ABOVE 95% ON 2L O2 VIA NC. SHE IS ON TELE WITH A RHYTHMN OF NORMAL SINUS. BED IS IN LOWEST POSITION, IV IS PATENT AND RUNNING IVF ORDERED, CALL LIGHT WITHIN REACH. WILL CONTINUE TO MONITOR.
--- NOTE | 2016-08-26 18:12 | Progress Note ---
Subjective General Admission History and Physical Examination Patient Name: Destinee Hoffman Admission Date: August 26, 2016 Primary Care Provider: None Attending Physician: Eddie Santos M.D. Admitting Physician: Eddie Santos M.D. SUBJECTIVE Historian: Patient Reliability: Fair Chief Complaint: Shortness of breath History of Present Illness: The patient is a 51-year-old white female with no significant past medical history presented to [facility] emergency department on the day of admission secondary to complaints of cough and shortness of breath. [facility] ER evaluation was consistent with probable exacerbation of COPD, bronchitis rule out pneumonia. Secondary to the above, the patient was admitted by Eddie Santos M.D. for further evaluation and treatment The history of present illness began approximately 4 days prior to admission when the patient developed nasal congestion or rhinorrhea and cough. Nasal discharge was yellowish in color. No fever or chills. On the day of admission the patient had increasing cough and shortness of breath prompting evaluation at local urgent care clinic. Evaluation scheduled [facility] urgent care clinic [facility] [place] showed the patient to have significant hypoxemia on room air. Secondary to the above the patient was transported to [facility] emergency department for further evaluation and treatment. Evaluation at [facility] emergency room was consistent with exacerbation of COPD, bronchitis versus pneumonitis. Secondary to the above the patient was admitted for further evaluation and treatment. PAST MEDICAL HISTORY Illnesses: 1. Cervical cancer Allergies: 1. Morphine, Levsin, codeine Medications: 1. None Surgery: 1. Cholecystectomy 2. Tubal ligation 3. Cervical cancer Injuries: 1. Traumatic brain injury 1997 Hospitalizations: 1. For above surgery FAMILY HISTORY Parents: 1. Father, living, 71, diabetes mellitus, prostate cancer, 2. Mother, living, 71, diabetes mellitus, coronary disease Siblings: 1. Female, living, 48, healthy Children: 1. Male, living, 29, type 1 diabetes mellitus, visual loss, end-stage renal disease Other significant family history: None SOCIAL HISTORY 1. Marital Status: 2. Mormon: U[employer]din-Taoist 3. Education: High school and 2 years of college 4. 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 Occupational health exposures: Dust, loud noises, heavy lifting HABITS 1. Tobacco: 7-pack-year history, stopped 2015 2. Drugs: None 3. Alcohol: None 4. Caffeine: Coffee 4 cups per day HEALTH SUPERVISION Item/Test 1. No recent other than EKG IMMUNIZATIONS: 1. Pneumococcal: No previous 2. Influenza: No previous 3. Tetanus: 2014 REVIEW OF SYSTEMS Remarkable for those things stated in the history of present illness and past medical history. Seventeen point review of system completed with the following notable findings: General: Weight gain Ears: Drainage Genitourinary: Incontinence Physical Exam Vital Signs / I&Os Vital Signs Date Time Temp Pulse Resp B/P Pulse O2 O2 Flow FiO2 Ox Delivery Rate 08/26 1730 97.9 67 18 122/70 94 Nasal 2.0 Cannula 08/26 1224 2.0 General Appearance Alert, Oriented X3, Cooperative, No acute distress HEENT Atraumatic, PERRLA, EOMI, Moist mucous membranes Lungs Decreased air movement bilaterally. Bilateral expiratory wheezes with scattered rhonchi Neck Supple, No JVD, No masses, 2+ carotid pulse wo bruit Cardiovascular Regular rate and rhythm, Normal S1 and S2, No murmurs, gallops, rubs Abdomen Normal bowel sounds, Soft, No tenderness, No guarding Extremities No cyanosis, No clubbing, No edema Neurological Cranial nerves intact, Strength 5/5 x4 ext's, No lateralizing signs Psych/Mental Status Mental status normal, Mood normal LAB Results Laboratory Tests 08/26 08/26 08/26 08/26 08/26 1344 1200 1135 1035 1035 Blood Gas Sample Site LR Total CO2 (24.0 - 30.0 mmol/L) 24.6 ABG pH (7.35 - 7.45) 7.40 ABG pCO2 at Pt Temp (35 - 45 mmHg) 37.9 ABG pO2 at Pt Temp (80.0 - 100.0 mmHg) 56.6 ABG HCO3 (20.0 - 26.0 mmol/L) 23.5 ABG O2 Sat Calc/Lashay (95.1 - 100.0 %) 90.7 ABG Base Excess (-6.0 - -6.0 mmol/L) -1.1 ABG Reduced Hgb (%) 9.1 ABG Carboxyhemoglobin (0.5 - 1.5 %) 2.4 ABG Methemoglobin (0.4 - 1.5 %) 0.1 Isaac Test YES Other Total Hgb (12.0 - 16.0 g/dL) 14.5 A-a O2 Gradient (7.0 - 14.0 mmHg) 49.4 Hgb O2 Saturation (95.0 - 100.0 %) 88.4 Respiration Rate (/MIN) 18 Vent Mode RA FiO2 (20 - 101 %) 21 Chemistry B-Natriuretic Peptide (5 - 100 pg/ml) 17.6 Procalcitonin (0 - 0.5 ng/mL) <0.5 Coagulation INR (0.8 - 1.2) 1.0 APTT (24 - 34 SECONDS) 31 Urines Urine Test NEGATIVE 08/26 1035 Chemistry Plasma Sodium (136 - 145 mmol/L) 138 Plasma Potassium (3.5 - 5.1 mmol/L) 3.4 Plasma Chloride (98 - 107 mmol/L) 105 CO2 (Enzymatic) (21 - 32 mmol/L) 27 BUN (7 - 18 mg/dL) 11 Creatinine (0.6 - 1.3 mg/dL) 0.9 Est GFR ( Amer) (mL/min) >60 Est GFR (Non-Af Amer) (mL/min) >60 Glucose (70 - 110 mg/dL) 164 Plasma Calcium (8.5 - 10.1 mg/dL) 8.2 Total Bilirubin (0.0 - 1.0 mg/dL) 0.8 AST (15 - 37 U/L) 33 ALT (12 - 78 U/L) 53 Alkaline Phosphatase (46 - 116 U/L) 65 Creatine Kinase (24 - 260 U/L) 135 Troponin (0.00 - 1.5 ng/mL) <0.05 Total Protein (6.4 - 8.2 g/dL) 7.2 Albumin (3.3 - 5.0 g/dL) 3.8 Amylase (25 - 115 U/L) 24 Lipase (73 - 393 U/L) 122 Coagulation D-Dimer, Quantitative (0.27 - 0.52 ug/mLFEU) 0.85 Hematology WBC (4.5 - 11.5 K/uL) 8.7 RBC (4.00 - 5.20 M/uL) 4.79 Hgb (12.0 - 16.0 gm/dL) 14.6 Hct (36.0 - 46.0 %) 44.4 MCV (80 - 100 fL) 93 MCH (26 - 34 pg) 30 RDW (11.6 - 14.8 %) 13.7 Neut % (Auto) (50 - 75 %) 63.5 Lymph % (Auto) (25 - 40 %) 25.2 [place] % (Auto) (3 - 14 %) 8.6 Eos % (Auto) (0 - 4 %) 2.0 Baso % (Auto) (0 - 2 %) 0.7 Plt Count, EDTA (150 - 400 K/uL) 232 PUBS MCHC (31 - 37 g/dL) 33 Microbiology Date/Time Procedure - Status Source Growth 08/26 1605 Blood Culture - RECD BLOOD 08/26 1455 Blood Culture - RECD BLOOD Imaging CTA Thorax IMPRESSION: 1. No evidence of pulmonary emboli, aortic dissection or aneurysm 2. Minor right middle and lower lobe infiltrates with mild hilar adenopathy suggestive of pneumonitis 3. Hepatic steatosis 4. Cholecystectomy 5. Results discussed with Dr. Braden Dictated by: MERLYN FERRER MD D: ROD;08/26/16 1326 Assessment and Plan Problem List 1. COPD (chronic obstructive pulmonary disease) Plan -Patient presents with findings suggestive of COPD exacerbation/asthma -Arterial hypoxemia without hypercarbia -CTA chest inconsistent with pulmonary embolism, possible pneumonitis -DuoNeb, albuterol, IV corticosteroids, and oxygen supplementation -WBC within normal limits, Procalcitonin within normal limits -Patient received antimicrobials in emergency department with repeat Procalcitonin a.m. with consideration of ongoing antimicrobials if patient noted to have fever, significant leukocytosis, or elevation of Procalcitonin -Most likely represents viral illness. Obtain respiratory Biofire panel. 2. Hyperglycemia Status Acute Onset Date Unknown Plan -Check hemoglobin A1c -Insulin sliding scale as necessary -monitor 3. Hypokalemia Status Acute Onset Date Unknown Plan -mild -By mouth supplementation -Monitor 4. Pneumonitis Plan -See above -Biofire screen positive louie virus. Current status: Fair, unstable Anticipated discharge date: Anticipated discharge in 2-3 days Anticipated discharge placement: Home Patient care time: Time spent in chart review, patient interview, physical exam, CPOE, and care documentation: Greater than 70 minutes Visit to patient today: 1 Complexity of care: High E&M Codes Rounding: Inpt-High/[id number]
--- NOTE | 2016-08-26 18:12 | Progress Note ---
Subjective General Admission History and Physical Examination Patient Name: Destinee Hoffman Admission Date: August 26, 2016 Primary Care Provider: None Attending Physician: Eddie Santos M.D. Admitting Physician: Eddie Santos M.D. SUBJECTIVE Historian: Patient Reliability: Fair Chief Complaint: Shortness of breath History of Present Illness: The patient is a 51-year-old white female with no significant past medical history presented to [facility] emergency department on the day of admission secondary to complaints of cough and shortness of breath. [facility] ER evaluation was consistent with probable exacerbation of COPD, bronchitis rule out pneumonia. Secondary to the above, the patient was admitted by Eddie Santos M.D. for further evaluation and treatment The history of present illness began approximately 4 days prior to admission when the patient developed nasal congestion or rhinorrhea and cough. Nasal discharge was yellowish in color. No fever or chills. On the day of admission the patient had increasing cough and shortness of breath prompting evaluation at local urgent care clinic. Evaluation scheduled [facility] urgent care clinic [facility] showed the patient to have significant hypoxemia on room air. Secondary to the above the patient was transported to [facility] emergency department for further evaluation and treatment. Evaluation at [facility] emergency room was consistent with exacerbation of COPD, bronchitis versus pneumonitis. Secondary to the above the patient was admitted for further evaluation and treatment. PAST MEDICAL HISTORY Illnesses: 1. Cervical cancer Allergies: 1. Morphine, Levsin, codeine Medications: 1. None Surgery: 1. Cholecystectomy 2. Tubal ligation 3. Cervical cancer Injuries: 1. Traumatic brain injury 1997 Hospitalizations: 1. For above surgery FAMILY HISTORY Parents: 1. Father, living, 71, diabetes mellitus, prostate cancer, 2. Mother, living, 71, diabetes mellitus, coronary disease Siblings: 1. Female, living, 48, healthy Children: 1. Male, living, 29, type 1 diabetes mellitus, visual loss, end-stage renal disease Other significant family history: None SOCIAL HISTORY 1. Marital Status: 2. Nondenominational: Yarsani-Episcopalian 3. Education: High school and 2 years of college 4. 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 Occupational health exposures: Dust, loud noises, heavy lifting HABITS 1. Tobacco: 7-pack-year history, stopped 2015 2. Drugs: None 3. Alcohol: None 4. Caffeine: Coffee 4 cups per day HEALTH SUPERVISION Item/Test 1. No recent other than EKG IMMUNIZATIONS: 1. Pneumococcal: No previous 2. Influenza: No previous 3. Tetanus: 2014 REVIEW OF SYSTEMS Remarkable for those things stated in the history of present illness and past medical history. Seventeen point review of system completed with the following notable findings: General: Weight gain Ears: Drainage Genitourinary: Incontinence Physical Exam Vital Signs / I&Os Vital Signs Date Time Temp Pulse Resp B/P Pulse O2 O2 Flow FiO2 Ox Delivery Rate 08/26 1730 97.9 67 18 122/70 94 Nasal 2.0 Cannula 08/26 1224 2.0 General Appearance Alert, Oriented X3, Cooperative, No acute distress HEENT Atraumatic, PERRLA, EOMI, Moist mucous membranes Lungs Decreased air movement bilaterally. Bilateral expiratory wheezes with scattered rhonchi Neck Supple, No JVD, No masses, 2+ carotid pulse wo bruit Cardiovascular Regular rate and rhythm, Normal S1 and S2, No murmurs, gallops, rubs Abdomen Normal bowel sounds, Soft, No tenderness, No guarding Extremities No cyanosis, No clubbing, No edema Neurological Cranial nerves intact, Strength 5/5 x4 ext's, No lateralizing signs Psych/Mental Status Mental status normal, Mood normal LAB Results Laboratory Tests 08/26 08/26 08/26 08/26 08/26 1344 1200 1135 1035 1035 Blood Gas Sample Site LR Total CO2 (24.0 - 30.0 mmol/L) 24.6 ABG pH (7.35 - 7.45) 7.40 ABG pCO2 at Pt Temp (35 - 45 mmHg) 37.9 ABG pO2 at Pt Temp (80.0 - 100.0 mmHg) 56.6 ABG HCO3 (20.0 - 26.0 mmol/L) 23.5 ABG O2 Sat Calc/Lashay (95.1 - 100.0 %) 90.7 ABG Base Excess (-6.0 - -6.0 mmol/L) -1.1 ABG Reduced Hgb (%) 9.1 ABG Carboxyhemoglobin (0.5 - 1.5 %) 2.4 ABG Methemoglobin (0.4 - 1.5 %) 0.1 Isaac Test YES Other Total Hgb (12.0 - 16.0 g/dL) 14.5 A-a O2 Gradient (7.0 - 14.0 mmHg) 49.4 Hgb O2 Saturation (95.0 - 100.0 %) 88.4 Respiration Rate (/MIN) 18 Vent Mode RA FiO2 (20 - 101 %) 21 Chemistry B-Natriuretic Peptide (5 - 100 pg/ml) 17.6 Procalcitonin (0 - 0.5 ng/mL) <0.5 Coagulation INR (0.8 - 1.2) 1.0 APTT (24 - 34 SECONDS) 31 Urines Urine Test NEGATIVE 08/26 1035 Chemistry Plasma Sodium (136 - 145 mmol/L) 138 Plasma Potassium (3.5 - 5.1 mmol/L) 3.4 Plasma Chloride (98 - 107 mmol/L) 105 CO2 (Enzymatic) (21 - 32 mmol/L) 27 BUN (7 - 18 mg/dL) 11 Creatinine (0.6 - 1.3 mg/dL) 0.9 Est GFR ( Amer) (mL/min) >60 Est GFR (Non-Af Amer) (mL/min) >60 Glucose (70 - 110 mg/dL) 164 Plasma Calcium (8.5 - 10.1 mg/dL) 8.2 Total Bilirubin (0.0 - 1.0 mg/dL) 0.8 AST (15 - 37 U/L) 33 ALT (12 - 78 U/L) 53 Alkaline Phosphatase (46 - 116 U/L) 65 Creatine Kinase (24 - 260 U/L) 135 Troponin (0.00 - 1.5 ng/mL) <0.05 Total Protein (6.4 - 8.2 g/dL) 7.2 Albumin (3.3 - 5.0 g/dL) 3.8 Amylase (25 - 115 U/L) 24 Lipase (73 - 393 U/L) 122 Coagulation D-Dimer, Quantitative (0.27 - 0.52 ug/mLFEU) 0.85 Hematology WBC (4.5 - 11.5 K/uL) 8.7 RBC (4.00 - 5.20 M/uL) 4.79 Hgb (12.0 - 16.0 gm/dL) 14.6 Hct (36.0 - 46.0 %) 44.4 MCV (80 - 100 fL) 93 MCH (26 - 34 pg) 30 RDW (11.6 - 14.8 %) 13.7 Neut % (Auto) (50 - 75 %) 63.5 Lymph % (Auto) (25 - 40 %) 25.2 [place] % (Auto) (3 - 14 %) 8.6 Eos % (Auto) (0 - 4 %) 2.0 Baso % (Auto) (0 - 2 %) 0.7 Plt Count, EDTA (150 - 400 K/uL) 232 PUBS MCHC (31 - 37 g/dL) 33 Microbiology Date/Time Procedure - Status Source Growth 08/26 1605 Blood Culture - RECD BLOOD 08/26 1455 Blood Culture - RECD BLOOD Imaging CTA Thorax IMPRESSION: 1. No evidence of pulmonary emboli, aortic dissection or aneurysm 2. Minor right middle and lower lobe infiltrates with mild hilar adenopathy suggestive of pneumonitis 3. Hepatic steatosis 4. Cholecystectomy 5. Results discussed with Dr. Braden Dictated by: MERLYN FERRER MD D: ROD;08/26/16 1326 Assessment and Plan Problem List 1. COPD (chronic obstructive pulmonary disease) Plan -Patient presents with findings suggestive of COPD exacerbation/asthma -Arterial hypoxemia without hypercarbia -CTA chest inconsistent with pulmonary embolism, possible pneumonitis -DuoNeb, albuterol, IV corticosteroids, and oxygen supplementation -WBC within normal limits, Procalcitonin within normal limits -Patient received antimicrobials in emergency department with repeat Procalcitonin a.m. with consideration of ongoing antimicrobials if patient noted to have fever, significant leukocytosis, or elevation of Procalcitonin -Most likely represents viral illness. Obtain respiratory Biofire panel. 2. Hyperglycemia Status Acute Onset Date Unknown Plan -Check hemoglobin A1c -Insulin sliding scale as necessary -monitor 3. Hypokalemia Status Acute Onset Date Unknown Plan -mild -By mouth supplementation -Monitor 4. Pneumonitis Plan -See above -Biofire screen positive louie virus. Current status: Fair, unstable Anticipated discharge date: Anticipated discharge in 2-3 days Anticipated discharge placement: Home Patient care time: Time spent in chart review, patient interview, physical exam, CPOE, and care documentation: Greater than 70 minutes Visit to patient today: 1 Complexity of care: High E&M Codes Rounding: Inpt-High/[id number]
[2016-08-26 22:33] VITALS: BP 122/68
--- NOTE | 2016-08-26 23:00 | NUR ---
Patient admitted forpneumonia and exacerbated COPD. Stilol breathless with occasional dry, raspy cough. On regular RT treatments and IV Steroids. Rang hospitalist to have her written up for sleeping pill for the night to help her settle.
--- NOTE | 2016-08-27 00:27 | ED MED RECONCILIATION SUMMARY ---
Patient: PADMINI STEPHEN Medication Reconciliation Report [facility] VisitID: [id number] [address] [place] [address] 51y, F Registration Date/Time: 08/26/2016 Weight: 68.0 kg Height/Length: 66 in. BMI: 24.2 ALLERGIES: Codeine, Levsin, morphine The patient's Home Medications are listed below: NONE. The source(s) of the original Home Medication information: Not obtained. The following Medications were given to the patient in the Emergency Department: SOLU-MEDROL [IVP] IVP 125 mg, administered: 08/26/2016 11:56:00 AM IV NS IV Fluids bolus 0, then 1000 mL/hr, administered: 08/26/2016 11:58:00 AM Duoneb [Neb Tx] Neb TX 1 unit dose, administered: 08/26/2016 12:28:00 PM Ceftriaxone [IVPB] IVPB bolus 0, then 2 gm 100 mL/hr, administered: 08/26/2016 1:45:00 PM Zithromax [IVPB] IVPB bolus 0, then 500 mg 255 mL/hr, administered: 08/26/2016 3:22:00 PM The following Medications were prescribed to the patient: None.
--- NOTE | 2016-08-27 00:27 | ED MAR SUMMARY ---
..... Medication Administration Record [facility] [address] [place] [address] Patient: PADMINI STEPHEN Visit ID: [id number] 51y, F Weight: 68.0 kg Height/Length: 66 in BMI: 24.2 ALLERGIES: Codeine, Levsin, morphine Given 11:56 08/26/2016 Joni Schulz R.N. Medication Administered: SOLU-MEDROL [IVP] (METHYLPREDNISOLONE SODIUM SUCC), Dose: 125 mg IVP over 2 minute(s), Site: #1 right AC. Medication Ordered: Solu-MEDROL IV 125 mg (NOW). Start 11:58 08/26/2016 Joni Schulz R.N. Medication Administered: IV NS (SALINE), Dose: IV Fluids over 1 hour(s), Rate: 1000 mL/hr, Dispensed: 1000 mL bag, Site: #1 right AC. Medication Ordered: IV NS : initial bolus 500 mL (1000 mL/hr), then 125 mL/hr for 4h (NOW); Urgent. Given 12:28 08/26/2016 Ayleen Berumen, Medication Administered: DUONEB [NEB TX] (IPRATROPIUM-ALBUTEROL), Dose: 1 unit dose Nebulizer Neb TX. Medication Ordered: DuoNeb Neb Tx 1 unit dose (NOW). Start 13:45 08/26/2016 Tico Zhang R.N. Medication Administered: CEFTRIAXONE [IVPB], Dose: 2 gm IVPB over 30 minute(s), Rate: 100 mL/hr, Dispensed: 50 mL bag, Site: #1 right AC. Medication Ordered: Ceftriaxone IV 2 gm/50mL (NOW). Start 15:22 08/26/2016 Tico Zhang R.N., Stop 16:30 08/26/2016 Tico Zhang R.N. Medication Administered: ZITHROMAX [IVPB] (AZITHROMYCIN), Dose: 500 mg IVPB over 1 hour(s), Rate: 255 mL/hr, Dispensed: 255 mL bag, Site: #1 right AC. Medication Ordered: Zithromax IV 500 mg/250 mL (NOW).
--- NOTE | 2016-08-27 00:27 | ED DISCHARGE INSTRUCTIONS ---
Patient: PADMINI STEPHEN General Instructions [facility] VisitID: [id number] [address] [place] [address] 51y, F Registration Date/Time: 08/26/2016 COPD. hypoxia pneumonitis. (Electronically signed by Vijay Braden MD 08/27/2016 0:27)
--- NOTE | 2016-08-27 00:27 | ED MAR SUMMARY ---
..... Medication Administration Record [facility] [address] [place] [address] Patient: PADMINI STEPHEN Visit ID: [id number] 51y, F Weight: 68.0 kg Height/Length: 66 in BMI: 24.2 ALLERGIES: Codeine, Levsin, morphine Given 11:56 08/26/2016 Joni Schulz R.N. Medication Administered: SOLU-MEDROL [IVP] (METHYLPREDNISOLONE SODIUM SUCC), Dose: 125 mg IVP over 2 minute(s), Site: #1 right AC. Medication Ordered: Solu-MEDROL IV 125 mg (NOW). Start 11:58 08/26/2016 Joni Schulz R.N. Medication Administered: IV NS (SALINE), Dose: IV Fluids over 1 hour(s), Rate: 1000 mL/hr, Dispensed: 1000 mL bag, Site: #1 right AC. Medication Ordered: IV NS : initial bolus 500 mL (1000 mL/hr), then 125 mL/hr for 4h (NOW); Urgent. Given 12:28 08/26/2016 Ayleen Berumen, Medication Administered: DUONEB [NEB TX] (IPRATROPIUM-ALBUTEROL), Dose: 1 unit dose Nebulizer Neb TX. Medication Ordered: DuoNeb Neb Tx 1 unit dose (NOW). Start 13:45 08/26/2016 Tico Zhang R.N. Medication Administered: CEFTRIAXONE [IVPB], Dose: 2 gm IVPB over 30 minute(s), Rate: 100 mL/hr, Dispensed: 50 mL bag, Site: #1 right AC. Medication Ordered: Ceftriaxone IV 2 gm/50mL (NOW). Start 15:22 08/26/2016 Tico Zhang R.N., Stop 16:30 08/26/2016 Tico Zhang R.N. Medication Administered: ZITHROMAX [IVPB] (AZITHROMYCIN), Dose: 500 mg IVPB over 1 hour(s), Rate: 255 mL/hr, Dispensed: 255 mL bag, Site: #1 right AC. Medication Ordered: Zithromax IV 500 mg/250 mL (NOW).
--- NOTE | 2016-08-27 00:27 | ED MED RECONCILIATION SUMMARY ---
Patient: PADMINI STEPHEN Medication Reconciliation Report [facility] VisitID: [id number] [address] [place] [address] 51y, F Registration Date/Time: 08/26/2016 Weight: 68.0 kg Height/Length: 66 in. BMI: 24.2 ALLERGIES: Codeine, Levsin, morphine The patient's Home Medications are listed below: NONE. The source(s) of the original Home Medication information: Not obtained. The following Medications were given to the patient in the Emergency Department: SOLU-MEDROL [IVP] IVP 125 mg, administered: 08/26/2016 11:56:00 AM IV NS IV Fluids bolus 0, then 1000 mL/hr, administered: 08/26/2016 11:58:00 AM Duoneb [Neb Tx] Neb TX 1 unit dose, administered: 08/26/2016 12:28:00 PM Ceftriaxone [IVPB] IVPB bolus 0, then 2 gm 100 mL/hr, administered: 08/26/2016 1:45:00 PM Zithromax [IVPB] IVPB bolus 0, then 500 mg 255 mL/hr, administered: 08/26/2016 3:22:00 PM The following Medications were prescribed to the patient: None.
--- NOTE | 2016-08-27 00:27 | ED DISCHARGE INSTRUCTIONS ---
Patient: PADMINI STEPHEN General Instructions [facility] VisitID: [id number] [address] [place] [address] 51y, F Registration Date/Time: 08/26/2016 COPD. hypoxia pneumonitis. (Electronically signed by Vijay Braden MD 08/27/2016 0:27)
[2016-08-27 02:43] VITALS: BP 114/64
[2016-08-27 07:15] VITALS: BP 110/63
--- NOTE | 2016-08-27 09:08 | NUR ---
RECEIVED PT ON BED, ON HIGH FOLWER'S POSITION, AWAKE, ALERT, ORIENTED, COHERENT, COOPERATIVE. TOLERATED HER MEALS WELL. V/S TAKEN AND RECORDED. ASSESSMENT DONE. PT DENIES ANY PAIN AT THIS TIME. WEAN OF FROM O2 AT 0930, O2 SAT ON RA, WHILE IN BED, ON HIGH FOLWER'S POSITION, AWAKE IS 90%, INFUSED 02 2L IMMEDIATLEY, INSTRUC PT TO ICNEREASE IN FLUID INTAKE. DUE MEDS GIVEN.
[2016-08-27 14:34] VITALS: BP 121/57
--- NOTE | 2016-08-27 17:05 | Progress Note ---
Subjective General Pt admitted 08/26/16 with flare of COPD-bronchospasm. She also shows evidence of bilat. infiltrates, prob viral. She is feeling beter. Tx is helping. Constitutional Weakness. Denies: Chills, Sweats, Malaise. Eyes Denies: Vision Change, Conjunctival Inflammation, Eyelid Inflammation. Respiratory Cough, SOB w/exertion, Wheezing, Sputum (minimal sputum). Cardiovascular Denies: Chest Pain, Palpitations, Orthopnea, Edema. Gastrointestinal Denies: Nausea, Vomiting, Abdominal Pain, Diarrhea. Genitourinary Frequency. Denies: Dysuria, Incontinence, Hematuria. Skin Denies: Rash, Lesions, Bruising. Neurological Denies: Weakness, Incoordination, Change in speech. Physical Exam Vital Signs / I&Os Vital Signs Date Time Temp Pulse Resp B/P Pulse O2 O2 Flow FiO2 Ox Delivery Rate 08/27 1434 98.1 102 24 121/57 94 Room Air 08/27 1414 2.0 08/27 0945 Nasal 2.0 Cannula 08/27 0715 97.9 65 20 110/63 92 Nasal 2.0 Cannula 08/27 0243 97.9 77 16 114/64 92 Nasal 2.0 Cannula 08/27 0152 2.0 08/26 2247 2.0 08/26 2233 97.9 70 18 122/68 95 Nasal 2.0 Cannula 08/26 2036 2.0 08/26 1913 2.0 08/26 1730 97.9 67 18 122/70 94 Nasal 2.0 Cannula I&O 08/26 0800 08/26 1600 08/27 0000 Intake Total Output Total 300 Balance -300 General Appearance Alert, Oriented X3, Cooperative, No acute distress HEENT Normal exam Lungs scattered insp. rales, scattered exp. rhonch and wheezes Cardiovascular Regular rate and rhythm, Normal S1 and S2, No murmurs, gallops, rubs Abdomen Normal bowel sounds, Soft, No tenderness, No guarding, No rebound Extremities No cyanosis, No clubbing, No edema Skin No Rashes, No Significant Lesions Neurological Normal exam, Normal speech, Cranial nerves intact Psych/Mental Status Mental status normal Assessment and Plan Problem List 1. Pneumonitis Plan Viral cause. Doing OK without antibiotic. 2. COPD (chronic obstructive pulmonary disease) Plan improving with nebs and solumedrol. 3. Hyperglycemia Status Acute Onset Date Unknown Plan Hbg A1C at 6.2. Woll need to pay attention to weight and reduce weight after DC. On sliding scale insulin. 4. Hypokalemia Status Acute Onset Date Unknown Plan On K+ replacement. Check lab in am. E&M Codes Rounding: Inpt-Moderate/[id number]
[2016-08-27 19:06] VITALS: BP 106/51
[2016-08-27 22:27] VITALS: BP 113/62
[2016-08-28 02:30] VITALS: BP 124/66
[2016-08-28 06:40] VITALS: BP 120/69
--- NOTE | 2016-08-28 12:53 | Discharge Summary ---
Discharge Summary Report Admit Date 08/26/16 Discharge Date 08/28/16 Admission Diagnosis COPD, HYGERGLYCEMIA,HYPOK,PNEUMONITIS Discharge Diagnosis SAME, elevated WBC Brief History The patient is a 51-year-old white female with no significant past medical history presented to [facility] emergency department on the day of admission secondary to complaints of cough and shortness of breath. [facility] ER evaluation was consistent with probable exacerbation of COPD, bronchitis rule out pneumonia. Hospital Course COPD: Breathing improved with treatment ELEVATED BS: a1c 6.2 c/w pre DM Elevated WBC: likely steroid related General Appearance Alert, Cooperative, T97.7 HR 80 RR 16 BP 124/66 96%sat HEENT clear Lungs Clear to auscultation, Normal air movement Cardiovascular Regular Rate Abdomen Soft Psych/Mental Status Mental status NL Lab/Imaging Laboratory Tests 08/28 600 Chemistry Plasma Sodium (136 - 145 mmol/L) 140 Plasma Potassium (3.5 - 5.1 mmol/L) 4.7 Plasma Chloride (98 - 107 mmol/L) 109 CO2 (Enzymatic) (21 - 32 mmol/L) 23 BUN (7 - 18 mg/dL) 9 Creatinine (0.6 - 1.3 mg/dL) 0.8 Est GFR ( Amer) (mL/min) >60 Est GFR (Non-Af Amer) (mL/min) >60 Glucose (70 - 110 mg/dL) 184 Plasma Calcium (8.5 - 10.1 mg/dL) 7.7 Plasma Magnesium (1.8 - 2.4 mg/dL) 1.9 Hematology WBC (4.5 - 11.5 K/uL) 15.1 RBC (4.00 - 5.20 M/uL) 4.18 Hgb (12.0 - 16.0 gm/dL) 12.8 Hct (36.0 - 46.0 %) 39.4 MCV (80 - 100 fL) 94 MCH (26 - 34 pg) 31 RDW (11.6 - 14.8 %) 13.5 Neut % (Auto) (50 - 75 %) 84.7 Lymph % (Auto) (25 - 40 %) 11.4 Whitley % (Auto) (3 - 14 %) 3.7 Eos % (Auto) (0 - 4 %) 0 Baso % (Auto) (0 - 2 %) 0.2 Plt Count, EDTA (150 - 400 K/uL) 317 PUBS MCHC (31 - 37 g/dL) 33 Discharge Instructions/Meds f/u with PMD 1-2 weeks. Check on cbc in follow up. Keep on breathing meds, prednisone
[2016-08-28] MEDS ORDERED: PREDNISONE20 MG PO (12:57)
--- NOTE | 2016-08-28 12:57 | Provider's Discharge Care Plan ---
Problem, Goal, Plan Problem List 1. COPD (chronic obstructive pulmonary disease) Instructions: Follow up as directed, Take meds as directed, has breathing that is improving take meds as prescribed 2. Hyperglycemia Instructions: has a1c in pre dm range
[2016-08-28] MEDS ORDERED: VENTOLIN HFA IN (12:58)
--- NOTE | 2016-08-28 13:30 | NUR ---
PT OOB AD [facility]I AMBULATING THE HALLWAY ON RA WITH NO S/S OF RESPIRATORY DISTRESS. DENIES PAIN OR DISCOMFORT. WENT OVER DC INSTRUCTIONS, GAVE PRESCRIPTIONS AND EDUCATION ON COPD AND PNEUMONIA. PT STATED UNDERSTANDING. ESCORTED OUT VIA WC TO PRIVATE CAR, HOME.
== END 2016-08-28 13:30 | disposition home or self-care (01) | DRG 140 ==
LOC: ED SRH 10:09 → TRANS SRH 16:09 → ACUTE2 SRH 16:09
PROVIDERS: ADMIT Emergency Medicine
PROC: 3E0234Z Introduction of Serum, Toxoid and Vaccine into Muscle, Percutaneous Approach (ICD-10-PCS; principal; 2016-08-27)
DX: J44.0 Chronic obstructive pulmonary disease with (acute) lower respiratory infection (principal); J12.89 Other viral pneumonia; B97.29 Other coronavirus as the cause of diseases classified elsewhere; J45.901 Unspecified asthma with (acute) exacerbation; J44.1 Chronic obstructive pulmonary disease with (acute) exacerbation; R09.02 Hypoxemia; E87.6 Hypokalemia; R73.9 Hyperglycemia, unspecified; D72.829 Elevated white blood cell count, unspecified; T38.0X5A Adverse effect of glucocorticoids and synthetic analogues, initial encounter; Z23 Encounter for immunization
CPT/HCPCS: 29230; 29257; 90047; 90065; 90074; 90098; 90100; 90616; 91286; 91320; 91556; 92235; 92530; 92610; 92720; 93004; 93070; 94001; 94060; 94139; 94140; 94141; 95059